=== PATIENT | female | born 1985 | race American Indian/Alaskan Native ===

== ENCOUNTER 2016-08-10 17:40 | Emergency (ER) | payer MEDICAID, OTHER ==
[2016-08-10 17:57] VITALS: BP 111/73
--- NOTE | 2016-08-10 18:06 | Emergency Department Report ---
Entered by BART BEATTY, acting as scribe for DEMETRA RIVERA NP. Chief Complaint: Abdominal Pain Stated Complaint: ABD PAIN /16WKS PREG/HEADACHE Time Seen by Provider: 08/10/16 17:57 - HPI History of Present Illness: 30 y/o female who is non toxic appearing, in no acute distress presents with c/ o bilateral upper abdominal and left pelvic pain today. Pt reports she is approximately 16 weeks . Per pt, she was seen by OB on 08/03/16 for first pre- visit and seen in ER on 08/05/16 for possible ruptured membranes with normal exam. Denies vaginal bleeding, vaginal discharge. - ROS Review of Systems: Reports bilateral upper abdominal pain, left pelvic pain, 16 weeks . Denies vaginal discharge, vaginal bleeding. - Exam Vital Signs: Vital Signs 08/10/16 17:45 Temperature 98 F Pulse Rate 89 Respiratory 16 Rate Blood Pressure 111/73 O2 Sat by Pulse 100 Oximetry Physical Exam: Constitutional: Non toxic appearing, NAD. Abdomen: No epigastric pain. Left pelvic tenderness to palpation. MSE screening note: Focused history and physical exam performed. Due to findings the following was ordered: CBC, CMP, amylase, lipase, serum HCG quantitative, UA, US OB and US transvaginal ED Disposition for MSE Condition: Stable Instructions: Abdominal Pain (ED) This documentation as recorded by the scribe,BART BEATTY,accurately reflects the service I personally performed and the decisions made by NICOLE mcmanus MARTIN, JAMIE.
[2016-08-10 18:36] LABS: Bilirubin,Urine NEG (Negative); Blood,Urine NEG (Negative); Ketones,Urine 80 mg/dL (Negative); Leukocyte Esterase,Urine MOD (Negative); Mucus,Urine 3+ /HPF; Nitrite,Urine NEG (Negative); Protein,Urine <15 mg/dL mg/dL (Negative); Urobilinogen,Urine < 2.0 mg/dL (<2.0)
[2016-08-10 18:40] LABS: Basophils % (Auto) 0.2 % (0.0-1.8); Eosinophils % (Auto) 3.3 % (0.0-4.3); Hematocrit 39.5 % (30.3-42.9); Hemoglobin 12.9 gm/dl (10.1-14.3); Mean Corpuscular HGB Conc 33 % (30-34); Mean Corpuscular Hemoglobin 29 pg (28-32); Mean Corpuscular Volume 88 fl (79-97); Platelet Count 269 K/mm3 (140-440); Red Blood Count 4.47 M/mm3 (3.65-5.03); Red Cell Distribution Width 13.9 % (13.2-15.2); White Blood Count 9.6 K/mm3 (4.5-11.0)
[2016-08-10 18:43] LABS: Amylase 55 units/L (27-131); Lipase 24 units/L (13-60)
[2016-08-10 18:47] LABS: Alanine Aminotransferase 13 units/L (7-56); Albumin 3.9 g/dL (3.9-5); Albumin/Globulin Ratio 1.4 %; Alkaline Phosphatase 39 units/L (35-129); Anion Gap 19 mmol/L; Blood Urea Nitrogen 5 mg/dL (7-17); Calcium 9.2 mg/dL (8.4-10.2); Carbon Dioxide 22 mmol/L (22-30); Chloride 101.1 mmol/L (98-107); Glucose 77 mg/dL (65-100); Potassium 3.7 mmol/L (3.6-5.0); Sodium 138 mmol/L (137-145); Total Protein 6.7 g/dL (6.3-8.2)
--- NOTE | 2016-08-12 20:01 | ED Elopement Review ---
ED Pt Elopement review - Results review Lab results: Laboratory Tests 08/10/16 08/10/16 08/10/16 18:09 18:09 18:09 WBC 9.6 RBC 4.47 Hgb 12.9 Hct 39.5 MCV 88 MCH 29 MCHC 33 RDW 13.9 Plt Count 269 Lymph % (Auto) 23.7 [place] % (Auto) 4.1 Eos % (Auto) 3.3 Baso % (Auto) 0.2 Lymph # 2.3 [place] # 0.4 Eos # 0.3 Baso # 0.0 Seg Neutrophils % 68.7 Seg Neutrophils # 6.6 Sodium 138 Potassium 3.7 Chloride 101.1 Carbon Dioxide 22 Anion Gap 19 BUN 5 L Creatinine 0.4 L Estimated GFR > 60 BUN/Creatinine Ratio 12.50 Glucose 77 Calcium 9.2 Total Bilirubin 0.50 AST 12 ALT 13 Alkaline Phosphatase 39 Total Protein 6.7 Albumin 3.9 Albumin/Globulin Ratio 1.4 Amylase Lipase HCG, Quant 02475 H Urine Color Urine Turbidity Urine pH Ur Specific [place] Urine Protein Urine Glucose (UA) Urine Ketones Urine Blood Urine Nitrite Urine Bilirubin Urine Urobilinogen Ur Leukocyte Esterase Urine WBC (Auto) Urine RBC (Auto) U Epithel Cells (Auto) Urine Mucus 08/10/16 08/10/16 18:09 18:15 WBC RBC Hgb Hct MCV MCH MCHC RDW Plt Count Lymph % (Auto) [place] % (Auto) Eos % (Auto) Baso % (Auto) Lymph # [place] # Eos # Baso # Seg Neutrophils % Seg Neutrophils # Sodium Potassium Chloride Carbon Dioxide Anion Gap BUN Creatinine Estimated GFR BUN/Creatinine Ratio Glucose Calcium Total Bilirubin AST ALT Alkaline Phosphatase Total Protein Albumin Albumin/Globulin Ratio Amylase 55 Lipase 24 HCG, Quant Urine Color Yellow Urine Turbidity Clear Urine pH 5.0 Ur Specific [place] 1.019 Urine Protein <15 mg/dl Urine Glucose (UA) Neg Urine Ketones 80 Urine Blood Neg Urine Nitrite Neg Urine Bilirubin Neg Urine Urobilinogen < 2.0 Ur Leukocyte Esterase Mod Urine WBC (Auto) 6.0 Urine RBC (Auto) 2.0 U Epithel Cells (Auto) 8.0 Urine Mucus 3+ - Call Back decision Pt Call Back Decision: No action required
== END 2016-08-10 20:30 | disposition left against medical advice (07) ==
LOC: ED 17:40
DX: O26.892 Other specified pregnancy related conditions, second trimester (principal); R10.2 Pelvic and perineal pain; Z3A.16 16 weeks gestation of pregnancy; Z53.21 Procedure and treatment not carried out due to patient leaving prior to being seen by health care provider
CPT/HCPCS: 36415; 80053; 81001; 82150; 83690; 84702; 85025